=== PATIENT | male | born 2000 | race Caucasian/White ===

== ENCOUNTER 2022-06-22 16:38 | Emergency (ER) | payer SELFPAY ==
[2022-06-22 16:48] VITALS: BP 126/77; PULSE 89; RESP 18; TEMP 36.6; O2SAT 98
--- NOTE | 2022-06-22 17:00 | DI.RAD_ITS ---
Exam(s) XR TOE LT GREAT EXAM: XR TOE LT GREAT CLINICAL HISTORY: puncture wound. TECHNIQUE: 2D digital imaging was performed. Three views. COMPARISON: No exams were available for comparison FINDINGS: BONES: No acute fracture is present. No bony destructive lesion is seen. JOINTS: No dislocation present. SOFT TISSUE: Swelling around proximal phalanx. No retained foreign body. IMPRESSION: Soft tissue swelling. DATA REPOSITORY: RADIATION DOSE DELIVERED:
--- NOTE | 2022-06-22 18:24 | DI.VRAD_ITS ---
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 Views: Minimum 2 views. COMPARISON: No relevant prior studies available. FINDINGS: Bones/joints: No displaced fractures or dislocations. Soft tissues: No radiopaque foreign bodies identified. Likely dressing overlying the soft tissues over the proximal phalanx of the 1st digit. Cannot rule out mild soft tissue swelling over the 1st digit. IMPRESSION: No displaced fractures or dislocations. No radiopaque foreign bodies. Cannot rule out mild soft tissue swelling over the 1st digit. Dictated and Authenticated by: Misha Dunne MD. Ordering:ROSA Galdamez MD
--- NOTE | 2022-06-22 18:43 | ED.GENADUL_ITS ---
Discharge Plan Disposition Patient Disposition: Home Discharge Details Clinical Impression: Puncture wound of great toe, left Primary Care Provider: Tracy Cassiyd ED Provider: Rudolph Estrada Home Meds and New Rx's Prescriptions: New cephalexin 500 mg tablet 500 mg PO QID 3 Days Qty: 12 0RF Discharge Instructions Instructions: Puncture Wound (ED) Additional Instructions: Please keep wound clean and dry and if you develop any new or significant worsening of symptoms please return to the emergency department for reassessment. Otherwise take antibiotics as prescribed and you may perform normal work functions as tolerated. Referrals: Tracy Cassidy [Primary Care Provider] - (As needed for reassessment) Medical Decision Making Patient presenting to the emergency department for chief complaint of left great toe injury. Patient states that he dropped something that punctured through his shoe and struck his left great toe. Patient denies any other injury or trauma. States he is up-to-date on his tetanus. Physical exam shows a L-shaped superficial laceration to the dorsal aspect of the left great toe. Distal to injury sensation is intact, no tendinopathy is noted. Given blunt trauma will perform radiological imaging. Reviewed radiological imaging and no acute fracture was noted. Wound was clean sed otherwise I feel that healing via secondary intention given superficial nature of wound is appropriate and that mechanism has high suspicion for infection. We will place patient on short course of Keflex and have patient monitor symptoms with return and follow-up precautions discussed. After discussion of diagnosis and plan of care patient has no further needs, questions, or concerns and states clear understanding to return to the emergency department for any worsening symptoms. This documentation was generated using [employer] dictation system, please disregard any oddities of phrase or misspellings. 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 Views: Minimum 2 views. COMPARISON: No relevant prior studies available. FINDINGS: Bones/joints: No displaced fractures or dislocations. Soft tissues: No radiopaque foreign bodies identified. Likely dressing overlying the soft tissues over the proximal phalanx of the 1st digit. Cannot rule out mild soft tissue swelling over the 1st digit. IMPRESSION: No displaced fractures or dislocations. No radiopaque foreign bodies. Cannot rule out mild soft tissue swelling over the 1st digit. HPI General Mode of arrival: ambulatory . Date/Time Provider Initiated Documentation: 06/22/22 16:59 . Limitations to Documentation: no limitations . Information obtained by: patient and RN notes reviewed . History of Present Illness 21 year old M presents to the emergency department with the chief complaint of Left great toe puncture wound, described as mild, with intensity rated at 2. Quality is described as aching and sharp, and is localized to the lower extremity. Patient started experiencing this hour(s) (2) and it has been constant. No relieving factors improve symptom(s), No exacerbating factors reported . Patient notes no other symptoms.. Patient did receive the following treatments prior to arrival, none Related Data Home Medications Medication Instructions Recorded Confirmed cephalexin 500 mg tablet 500 mg PO QID 3 days #12 tabs 06/22/22 Previous Rx's Medication Instructions Recorded cephalexin 500 mg tablet 500 mg PO QID 3 days #12 tabs 06/22/22 Allergies Allergy/AdvReac Type Severity Reaction Status Date / Time No Known Allergies Allergy Unverified 06/22/22 16:51 General Stated Complaint: Orthopedic LOY: 4 Review of Systems Narrative: 6 systems reviewed and unremarkable except what is marked below. Musculoskeletal Musculoskeletal: Reports as per HPI, Denies numbness and Denies tingling Integumentary/Breasts Skin/Breast: Reports as per HPI and Reports wounds (Puncture wound) Neurologic Neurologic: Denies numbness and Denies tingling PFSH All Active Problems Puncture wound of great toe, left (Acute) Social History Smoking/Tobacco Use Status: Never Smoking risk assessment performed?: Yes Alcohol Intake: current Alcohol Intake frequency: a few times a month Substance use type: does not use Do you feel safe at home: Yes Do you feel safe in your relationship?: Yes Exam Const General: cooperative, no acute distress and not ill appearing Orientation: alert, awake and oriented x3 Resp Effort & Inspection: normal respiratory effort, able to speak in complete sentences and no respiratory distress Cardio Rate: regular rate Rhythm: regular rhythm Neuro General: patient alert, patient awake, patient oriented x3, moves all extremities and no focal motor deficits Sensory Exam: no sensory deficits noted Extrem General: normal exam except as noted Left lower extremity: foot Details: normal capillary refill, tenderness Location: of the great toe Location: at the proximal phalanx; not of the lateral foot, not of the medial foot and not of the base of the 5th metatarsal, toes with normal ROM, puncture wound dorsal great toe Details: single, vascular exam Details: dorsalis pedis pulse present, posterior tibial pulse present and normal capillary refill, tendon exam Details: active flexion normal and active extension normal and motor-sensory exam Details: two point discrimination normal, light-touch normal and pin-prick normal; no ecchymosis Course Vital Signs Vital signs: Vital Signs Temperature 36.6 C 06/22/22 16:48 Pulse 89 06/22/22 16:48 Respiratory Rate 18 06/22/22 16:48 Blood Pressure 126/77 06/22/22 16:48 Pulse Oximetry 98 06/22/22 16:48 Temperature 36.6 C 06/22/22 16:48 Temperature Source Temporal Artery Scan 06/22/22 16:48 Pulse 89 06/22/22 16:48 Respiratory Rate 18 06/22/22 16:48 Respiratory Effort Normal, Non-Labored 06/22/22 16:53 Blood Pressure 126/77 06/22/22 16:48 Blood Pressure Position Sitting 06/22/22 16:48 Pulse Oximetry 98 06/22/22 16:48 Oxygen Delivery Method Room Air 06/22/22 16:48 Oxygen Flow Rate 0 06/22/22 16:48 Pain Level 4 06/22/22 17:18
[2022-06-22 18:45] VITALS: BP 132/68; PULSE 64; RESP 16; O2SAT 98
[2022-06-22] MEDS: Cephalexin 500 MG CAP PO (18:57)
== END 2022-06-22 18:58 | disposition home or self-care (01) ==
PROVIDERS: Emergency Provider Nurse Practitioner Family; PCP Family Medicine
DX: S91.132A Puncture wound without foreign body of left great toe without damage to nail, initial encounter (principal); W20.8XXA Other cause of strike by thrown, projected or falling object, initial encounter
CPT/HCPCS: 99283; 73660; 99284